=== PATIENT | male | born 1980 | race African-American/Black ===

== ENCOUNTER 2025-03-24 14:23 | Emergency (ER) | payer MEDICAID ==
[~2025-03-24] VITALS: Ht 182.9 cm; Wt 100.0 kg
[2025-03-24 14:34] VITALS: O2SAT 99
[2025-03-24] MEDS: KETOROLAC 30MG/ML VIAL IM ONE (15:41)
[2025-03-24] MEDS: LIDOCAINE 5% PATCH TOP SCH (15:41)
[2025-03-24] MEDS ORDERED: CYCL5TAB3 MT (17:03)
[2025-03-24 17:11] VITALS: BP 155/90; PULSE 82; RESP 14; TEMP 36.6; O2SAT 99
== END 2025-03-24 17:12 | disposition home or self-care (01) ==
LOC: ER 14:23
DX: M79.601 Pain in right arm (principal); I10 Essential (primary) hypertension
CPT/HCPCS: 93971; 96372; 99285; J1885; Z7610